=== PATIENT | female | born 1970 | race Hispanic/Latino ===

== ENCOUNTER 2023-05-27 20:06 | Emergency (ER) | payer MEDICARE ==
[~2023-05-27] VITALS: Ht 147.3 cm; Wt 48.5 kg
[~2023-05-27 20:06] MED LIST: CARV12.580 PO; LISI40TA9 PO; LORA1TAB3 PO; MINO2.5T3 PO; PRED5TAB44 PO; SEVE800T7 PO; TRAM50TA2 PO
[2023-05-27 20:53] VITALS: BP 146/80; PULSE 66; RESP 20
[2023-05-27] MEDS: FLUORESCEIN SODIUM 1 STRIP STRIP OP SCH (23:56)
[2023-05-27] MEDS: TETRACAINE HCL 0.5% 4 ML OPHTH SOLN OP SCH (23:57)
[2023-05-28] MEDS ORDERED: ERYT1OIN7 OP (00:09)
== END 2023-05-28 00:11 | disposition home or self-care (01) ==
LOC: EDH 20:06
DX: S05.01XA Injury of conjunctiva and corneal abrasion without foreign body, right eye, initial encounter (principal); I10 Essential (primary) hypertension; Z79.52 Long term (current) use of systemic steroids; Z79.899 Other long term (current) drug therapy; Z88.0 Allergy status to penicillin; Z88.1 Allergy status to other antibiotic agents; Z90.49 Acquired absence of other specified parts of digestive tract; X58.XXXA Exposure to other specified factors, initial encounter; Y93.89 Activity, other specified; Y92.89 Other specified places as the place of occurrence of the external cause; Y99.8 Other external cause status

== ENCOUNTER 2024-01-14 13:28 | Emergency (ER) | payer MEDICARE ==
[~2024-01-14] VITALS: Ht 147.3 cm; Wt 47.8 kg
[~2024-01-14 13:28] MED LIST changes: +AEC81 PO; +AMLO5TAB4 PO; -CARV12.580 PO; +CARV6.2579 PO; +GABA-529 PO; +HYDR-3421 PO; +ONDA4TAB10 PO; +PHOSLOC PO
[2024-01-14] MEDS ORDERED: METH4TAB3 PO (16:58)
[2024-01-14] MEDS: DEXAMETHASONE SOD PHOSPHATE 4 MG/ML 1ML VIAL IM ONE (17:15)
[2024-01-14] MEDS: HYDROCODONE/ACETAMINOPHEN 5/325 MG TAB PO ONE (17:21)
[2024-01-14 17:51] VITALS: BP 160/78; PULSE 68; RESP 16; O2SAT 99
== END 2024-01-14 17:52 | disposition home or self-care (01) ==
LOC: EDH 13:28
DX: M25.552 Pain in left hip (principal); I10 Essential (primary) hypertension; Z79.52 Long term (current) use of systemic steroids; Z79.82 Long term (current) use of aspirin; Z79.899 Other long term (current) drug therapy; Z88.0 Allergy status to penicillin; Z88.1 Allergy status to other antibiotic agents; Z99.2 Dependence on renal dialysis
CPT/HCPCS: 99283; 73502; 96372; J1100

== ENCOUNTER → 2025-01-11 | Outpatient (CLI) | payer MEDICARE ==
[~2025-01-11] MED LIST changes: -AEC81 PO; +CARV25TA PO; -CARV6.2579 PO; -LISI40TA9 PO; -LORA1TAB3 PO; +LOSA50TA64 PO; -ONDA4TAB10 PO; -PHOSLOC PO; -PRED5TAB44 PO; -SEVE800T7 PO; -TRAM50TA2 PO; +TRAM50TA4 PO
[2025-01-11 10:16] LABS: CREATININE 6.5 mg/dL (0.5-1.0)
== END | disposition home or self-care (01) ==
LOC: LAB 08:59
PROVIDERS: ATTEND Student in an Organized Health Care Education/Training Program
DX: I12.0 Hypertensive chronic kidney disease with stage 5 chronic kidney disease or end stage renal disease (principal); E11.22 Type 2 diabetes mellitus with diabetic chronic kidney disease; N18.6 End stage renal disease; Z99.2 Dependence on renal dialysis
CPT/HCPCS: 36415; 82565; 84520

== ENCOUNTER → 2025-01-18 | Outpatient (CLI) | payer MEDICARE ==
[~2025-01-18] MED LIST changes: +IOHEXOL-350 75 ML VIAL IV ONE
--- NOTE | 2025-01-18 15:57 | HMCIMG ---
Exam Type: CT angiogram abdomen and pelvis and lower extremities run-off with contrast Exam Type: CT ANGIO ABD AORTA W RUNOFF Clinical Information: END STAGE RENAL DISEASE Comparison: None Technique: Routine helical scanning at 5mm collimation through the abdomen and pelvis after contrast administration. In addition, sagittal and coronary formations of the abdomen pelvis and surface rendering three-dimensional reconstructions of the abdominal aorta and the bilateral lower extremity arterial system were performed. Findings: The vascular examination is abnormal. Bilateral femoral loop arteriovenous graft identified. There is at least partial occlusion of both. There is no aortic aneurysm. There is no occlusion. There is no dissection. There is no extravasation to suggest laceration or rupture. The aorta, common iliac arteries, superficial femoral arteries and popliteal arteries are patent and the runoff is provided bilaterally by a fairly robust posterior tibial arteries. Partially calcified structure of the right lower lobe suggestive of partially calcified atelectatic lung is again seen, unchanged since prior examination of October 28, 2024. No evidence of nephro or ureterolithiasis is found. No hydronephrosis or ureteral dilatation is seen. The kidneys are atrophic. The visualized portion of the stomach is unremarkable. It shows no wall thickening. No gross ulceration is seen. It is not overly distended. There are no surrounding inflammatory changes. No wall lesions are identified to suggest cancer. The visualized portion of the spleen is unremarkable. It is not enlarged. The pancreas shows normal anatomy. It is not fatty replaced. It shows no lesions. The pancreatic duct is not dilated. The gallbladder is surgically absent. The adrenal glands are unremarkable. There is no enlargement. No lesions are noted. The visualized portion of the liver is unremarkable. It shows no focal masses. The appendix is unremarkable. It shows no evidence of inflammation. No appendicolith is seen. The small bowel is unremarkable. There is no evidence of dilatation to suggest obstruction. No evidence of adynamic ileus is seen. There is no small bowel wall thickening to suggest enteritis. The colon is unremarkable. The urinary bladder is unremarkable. There is no wall thickening to suggest tumor or inflammation. There are no intraluminal calculi. There are no diverticula. There is no evidence of chronic bladder outlet obstruction. There is no evidence of urinary bladder distention to suggest urinary retention. The other pelvic structures are unremarkable. Status post bilateral knee replacement. IMPRESSION: Preserved runoff via posterior tibial arteries. Other vascular changes as described. This study was performed using dose reduction techniques to include automated exposure control and/or adjustment of the mA and/or kV according to patient size.
== END | disposition home or self-care (01) ==
LOC: RAH 10:20
PROVIDERS: ATTEND Student in an Organized Health Care Education/Training Program
DX: I74.09 Other arterial embolism and thrombosis of abdominal aorta (principal); N26.1 Atrophy of kidney (terminal); I13.2 Hypertensive heart and chronic kidney disease with heart failure and with stage 5 chronic kidney disease, or end stage renal disease; E11.22 Type 2 diabetes mellitus with diabetic chronic kidney disease; N18.6 End stage renal disease; J98.4 Other disorders of lung; I50.22 Chronic systolic (congestive) heart failure; I50.82 Biventricular heart failure; Z96.653 Presence of artificial knee joint, bilateral
CPT/HCPCS: 75635; Q9967

== ENCOUNTER 2025-03-25 06:44 | Day surgery (SDC) | payer MEDICARE ==
[2025-03-22 11:25] LABS: IMMATURE GRANULOCYTE ABSOLUTE 0.02 K/uL (0-1); NUCLEATED RED BLOOD CELLS 0.0 % (0.0-0.19); PLATELET COUNT (AUTO) 230 K/uL (130-400); RED BLOOD CELL COUNT(AUTO) 3.48 MIL/uL (4.00-5.50); RED CELL DISTRIBUTION WIDTH 17.0 % (11.0-15.5); WHITE BLOOD COUNT (AUTO) 5.6 K/uL (4.8-10.8)
[2025-03-22 11:40] LABS: ASPARTATE AMINOTRANSFERASE 26.0 U/L (10-37); CREATININE 6.4 mg/dL (0.5-1.0); GLOMERULAR FILTR. RATE CALC 7.0 mL/min (>90); GLUCOSE,RANDOM 66.0 mg/dL (70-105); SODIUM SERUM 142.0 mmol/L (136-145); TOTAL PROTEIN, SERUM 8.1 g/dL (6.0-8.3); UREA NITROGEN, BLOOD 27.0 mg/dL (7-18)
[2025-03-22 11:47] LABS: INR 1.03 (0.85-1.15)
[2025-03-22 12:26] VITALS: BP 171/85; PULSE 80; RESP 15; TEMP 98
--- NOTE | 2025-03-22 12:32 | NUR ---
REPORT REPORTED O2 SAT/SOB AND COUGH TO DR WEINSTEIN. RECEIVED ORDERS FOR CXR ONE VIEW.
[~2025-03-25] VITALS: Ht 147.3 cm; Wt 47.0 kg
[2025-03-25] VITALS (21 sets, daily range): BP systolic 75–134; BP diastolic 40–72; PULSE 60–69; RESP 15–22; TEMP 97.1–97.5
[~2025-03-25 06:44] MED LIST changes: -CARV25TA PO; -IOHEXOL-350 75 ML VIAL IV ONE; +LABE200T7 PO; +ONDA-243 PO
--- NOTE | 2025-03-25 07:15 | NUR ---
GRAFT RIGHT FEMORAL GRAFT CREATION. Addendum: 03/25/25 at 0813 by KEVON ROSAS RN RN Amended: Links added.
[2025-03-25 07:31] LABS: CREATININE 5.5 mg/dL (0.5-1.0); GLOMERULAR FILTR. RATE CALC 9.0 mL/min (>90); GLUCOSE,RANDOM 74.0 mg/dL (70-105); SODIUM SERUM 135.0 mmol/L (136-145); UREA NITROGEN, BLOOD 27.0 mg/dL (7-18)
[2025-03-25] MEDS: DEXTROSE 50%-WATER 50 ML DISP.SYRIN IV ONE (07:42)
[2025-03-25] MEDS: 0.9% NACL 500ML IV.SOLN 500 ML IV ONE (07:45)
[2025-03-25] MEDS: CLINDAMYCIN IVPB 600MG/50ML 50 ML IV ONE (08:29)
[2025-03-25] MEDS ORDERED: NEOSTIGMINE METHYLSULFATE 1MG/ML IV ONE (09:00)
[2025-03-25] MEDS ORDERED: GLYCOPYRROLATE 0.2 MG/ML 5 ML VIAL ONE (09:00)
[2025-03-25] MEDS ORDERED: LIDOCAINE PF 100MG/5ML (2%) SYRINGE 5ML ONE (09:00)
[2025-03-25] MEDS ORDERED: MIDAZOLAM HCL 1 MG/ML 2ML VIAL ONE (09:01)
[2025-03-25] MEDS: HEParin-NS 1,000 UNIT/500 ML 500 ML IV ONE (09:58)
--- NOTE | 2025-03-25 17:38 | OP ---
Operative Note: DATE OF PROCEDURE: 03/25/25 SURGEON: VIVIEN ESPINAL MD PREOPERATIVE DIAGNOSIS: End-stage renal disease POSTOPERATIVE DIAGNOSIS: End-stage renal disease PROCEDURE: Removal of right old femoral graft, Right lower extremity arteriovenous femoral to femoral graft creation INDICATIONS: Patient needs access for dialysis ESTIMATED BLOOD LOSS: 40cc Devices left in place: 4to 7 mm graft Anesthesia: General endotracheal DESCRIPTION OF PROCEDURE: Patient is brought to the operating room placed on the operating table in a supine position. Once general endotracheal anesthesia is achieved patient's right lower extremity up to the left pelvic area is prepped and draped in sterile fashion. Using ultrasound we identified the femoral artery and vein just under the level of the groin . We then proceeded to create a transverse incision just under the fold of the groin over top over we had identified the arterial and venous portion of the old graft. The venous portion of the graft had a large stent going between the graft and the anastomosis it seemed to be going to the saphenous vein and not to the femoral vein. I identified the arterial anastomosis of the old graft going to the superficial femoral artery and dissected proximally and distally to the anastomosis and we got a good target at the artery above the anastomosis. We then proceeded to identify the femoral vein posteriorly and medial to the artery. And obtain proximal and distal control of it. I then proceeded to suture ligate the graft proximally and distally at the arterial and venous portions and then removed the graft by creating a transverse incision at the inferior portion of the loop and dissected around it with Bovie cautery. Handed the graft off for specimen. We then proceeded to tunnel the venous portion of the graft medially and the arterial portion laterally. Using the same incisions from the previous graft by tunneled it more medial and lateral than the old tunnel. We then proceeded to create our arterial anastomosis first. We then asked anesthesia to give 5000 units of heparin. I then proceeded to clamp the femoral artery proximally and distally . I then proceeded to create a end-to-side anastomosis between the brachial artery and the 4 mm portion of the graft at the antecubital fossa with 6-0 Prolene. When we did the arteriotomy there was a significant amount of plaque that we were able to remove. And then proceeded to continue with the anastomosis. Once the anastomosis was completed I then.opened up the proximal clamp to the graft first and that there to flush. And then proceeded to open the distal clamp on the artery emanated flush out the anastomosis and then open the distal clamp. I then proceeded to suture the anastomosis. We then cut our graft distally to tailored to that there was no redundancy. And proceeded to create our venous anastomosis with a 7 mm portion of the graft. We clamped the femoral vein proximally and distally. And created an end-to-side anastomosis with the femoral vein Using 6-0 Prolene. I then opened up the clamp to the graft first and that there to flush. And then proceeded to open the proximal clamp on the vein emanated flush out the anastomosis and then open the distal clamp. I then proceeded to suture the anastomosis. We ensured with a Doppler that we had a strong dorsal pedal pulse at the foot and posterior tibial. We had a good thrill throughout the graft. We then closed both incisions with 2 layers with subcutaneous tissue being closed with 2-0 Vicryl in running fashion and the skin was closed with 4-0 Monocryl in running fashion, Dermabond was applied over top. Skin dressings were applied over top patient tolerated the procedure well all counts were correct x2 at the end of the procedure. VIVIEN ESPINAL MD Mar 25, 2025 17:38
--- NOTE | 2025-03-28 16:40 | HMCIMG ---
EXAM: CR Chest, 1 View. CLINICAL HISTORY: PREOP/SOB COMPARISON: November 18, 2024. FINDINGS: LUNGS: Emphysematous lung changes PLEURAL SPACES: No pleural effusion or pneumothorax. MEDIASTINUM: Prominent cardiac silhouette. BONES: No acute osseous abnormality. MISCELLANEOUS: Pacer evident. Venous line evident. Right hiatal hernia appears similar. IMPRESSION: 1. Prominent cardiac silhouette. 2. Emphysematous lung changes 3. Pacer evident. 4. Venous line evident. 5. Right hiatal hernia appears similar. /[place]
== END 2025-03-25 14:30 | disposition home or self-care (01) ==
LOC: DAH 06:44
PROVIDERS: ATTEND Student in an Organized Health Care Education/Training Program
DX: T82.510A Breakdown (mechanical) of surgically created arteriovenous fistula, initial encounter (principal); I12.0 Hypertensive chronic kidney disease with stage 5 chronic kidney disease or end stage renal disease; N18.6 End stage renal disease; K44.9 Diaphragmatic hernia without obstruction or gangrene; Z79.899 Other long term (current) drug therapy; Z87.898 Personal history of other specified conditions; Z90.49 Acquired absence of other specified parts of digestive tract; Z98.891 History of uterine scar from previous surgery; Z98.890 Other specified postprocedural states; Z99.2 Dependence on renal dialysis; Z83.3 Family history of diabetes mellitus; Z82.49 Family history of ischemic heart disease and other diseases of the circulatory system; Z84.89 Family history of other specified conditions; Z88.8 Allergy status to other drugs, medicaments and biological substances; Z88.1 Allergy status to other antibiotic agents; Y82.8 Other medical devices associated with adverse incidents; Y92.89 Other specified places as the place of occurrence of the external cause
CPT/HCPCS: 80053; 84703; 85025; 85610; 85730; 86850; 86900; 86922; 86901; 86905 ×2; 86870; 36415 ×2; 71045; 36832; 80048; 88300; A6260; A4663; J7040 ×2; C1768; J3010 ×3; J7070; J3490 ×5; J2003; J2720; J1644 ×2; J2250; J2704; J2710; J2371; A4649 ×2; C1713 ×2; A4215; A4223; A4222; A4221; A4600